=== PATIENT | female | born 1995 | race Caucasian/White ===

== ENCOUNTER → 2025-01-21 | Outpatient (CLI) | payer BC, MEDICAID, SELFPAY ==
--- NOTE | 2025-01-21 09:30 | XR_ITS ---
Examination: MRI cervical spine without intravenous contrast Date and time of exam: January 21, 2025, 0958 hrs., Comparison April 23, 2023. Indications: Right-sided neck pain with numbness and paresthesias in the arms and hands 8 years Technique: Multiple axial and sagittal sections of the cervical spine to been obtained. T2 weighted sagittal sections, TR 3, 270, TE 117 T1-weighted sagittal sections, TR 500, TE 11 T1-weighted axial sections, TR 607, TE 12, axial sections TR 18, TE 27 and T2 weighted transverse sections, TR 3920, TE 122. Findings: Satisfactory alignment cervical vertebral bodies on the lateral view. No cervical fracture. Intact odontoid. No localized enlargement cervical cord. C2-C3 no disc protrusion. C3-C4 moderate left neural foraminal stenosis. C4-C5 no disc protrusion. C5-C6 mild left neural foraminal stenosis. C6-C7 no disc protrusion. C7-T1 no disc protrusion. Impression: C3-C4 moderate left neural foraminal stenosis. C5-C6 mild left neural foraminal stenosis
== END | disposition home or self-care (01) ==
LOC: SMRI 09:17
PROVIDERS: PCP Nurse Practitioner; Referring Provider Nurse Practitioner; Visit Provider Nurse Practitioner
DX: M48.02 Spinal stenosis, cervical region (principal)
CPT/HCPCS: 72141